=== PATIENT | male | born 1995 | race Caucasian/White ===

== ENCOUNTER 2018-01-23 21:35 | Emergency (ER) | payer OTHER ==
[~2018-01-23] VITALS: Ht 182.9 cm; Wt 90.0 kg
--- NOTE | 2018-01-23 22:21 | PD ---
HPI Chief Complaint: Psychiatric Symptoms Time Seen by Provider: 21:43 Travel History International Travel<30 days: No Contact w/Intl Traveler<30days: No Traveled to known affect area: No History of Present Illness HPI 22-year-old white male presents emergency department as a transfer from [facility] emergency department. The patient was medically cleared. He was Carreon acted by the ER physician. The patient was acting acutely bizarre and manic. Patient was positive for amphetamines, cocaine, and marijuana. Patient was given 5 mg of Haldol and 2 mg of Ativan. The patient here denies any suicidal homicidal ideation. He states he does not understand why he is here today. The patient denies any medical complaints. [facility] Past Medical History Narrative Medical IV drug abuse Tetanus Vaccination: Unknown Past Surgical History Surgical History: No Previous Surgery Social History Alcohol Use: Yes Tobacco Use: Yes Substance Use: Yes Review of Systems ROS Limitations: Poor Historian Physical Exam Narrative GENERAL: Well-nourished, well-developed patient. SKIN: Warm and dry. Patient has abrasion on the right forearm. Patient has areas of bruising to the upper extremities and track logan. HEAD: Normocephalic and atraumatic. EYES: No scleral icterus. No injection or drainage. ENT: No nasal drainage noted. Mucous membranes pink. Airway patent. NECK: Supple, trachea midline. Moves head freely without obvious discomfort. CARDIOVASCULAR: Regular rate and rhythm without murmurs, gallops, or rubs. RESPIRATORY: Breath sounds equal bilaterally. No accessory muscle use. GASTROINTESTINAL: Abdomen soft, non-tender, nondistended. EXTREMITIES: No cyanosis or edema. BACK: Nontender without obvious deformity. No CVA tenderness. NEURO: Patient is alert and oriented to person, time and year. He does not know the location or reason for visit today.. no sensorimotor deficits. Nonfocal. Normal speech. PSYCH: No delusions. No auditory or visual hallucinations. [facility] Medical Decision Making Medical Screen Exam Complete: Yes Emergency Medical Condition: Yes Medical Record Reviewed: Yes Interpretation(s) Laboratory tests reviewed from his medical evaluation and [facility] Differential Diagnosis MDM: High Differential diagnoses: Schizophrenia, schizoaffective disorder, bipolar, anxiety, depression, adjustment reaction, mood disorder NOS, ODD, depressive disorder NOS, dementia, dementia with agitation, psychosis NOS, substance induced mood disorder, DMDD, Asperger syndrome, infection,electrolyte abnormality, malingering. Narrative Course Mental health screening discussed with the patient. Psychiatric screen ordered. Patient has been medically cleared. This is medical clearance for psychiatric admission, substance induced psychosis , polysubstance abuse Diagnosis Primary Impression: Medical clearance for psychiatric admission Additional Impressions: Substance-induced psychosis Polysubstance abuse Condition: Stable Andrew Chapa Jan 23, 2018 22:21
[2018-01-24 02:21] VITALS: BP 126/60; PULSE 97; RESP 16; O2SAT 99
[2018-01-24 11:15] VITALS: BP 143/79; PULSE 62; RESP 20
[2018-01-24 19:10] VITALS: BP 128/61; PULSE 56; RESP 20; O2SAT 96
[2018-01-25 02:14] VITALS: BP 141/67; PULSE 65; RESP 17; O2SAT 99
[2018-01-25 06:46] VITALS: BP 112/62; PULSE 92; RESP 16; O2SAT 100
--- NOTE | 2018-01-25 09:03 | PD ---
Physical Exam Time Seen by Provider: 09:[address] Logan has evaluated patient, lifted the Carreon act and cleared patient for discharge. Data Data Last Documented VS Vital Signs Date Time Temp Pulse Resp B/P (MAP) Pulse Ox O2 Delivery O2 Flow Rate FiO2 01/25/18 06:46 92 16 112/62 (79) 100 Room Air Orders Orders Psych Screen (01/23/18 22:17) Diet Regular Basic (01/24/18 Breakfast) Diet Regular Basic (01/24/18 Lunch) Diet Regular Basic (01/24/18 Dinner) Diet Regular Basic (01/25/18 Breakfast) MDM Supervised Visit with LANDON: No Narrative Course Dr. Logan has evaluated patient, lifted the Carreon act and cleared patient for discharge. Patient contracts safety. Denies suicidal or homicidal ideations. Patient will be provided community resource packet to [facility] for follow-up. Has friends and family for support. Patient was medically cleared by alternate provider prior to psych screening. Patient has been evaluated by psychiatry and and is now cleared for discharge. Diagnosis Primary Impression: Polysubstance abuse Additional Impression: Substance-induced psychosis Referrals: [facility] (Out patient) [facility] Primary Care Physician Psychiatrist Domenica BUSBY Behavioral Patient Instructions: General Instructions, Mood Disorders (ED), Polysubstance Abuse (ED) Additional Instruction: Contract safety to your self and others Stop using drugs Follow-up with psychiatry Follow-up with primary care provider Follow-up with Ellis Dumont Return to the emergency department immediately with worsening of symptoms Med/Other Pt SpecificInfo: No Change to Meds, No Meds Exist/No RX given Scripts Unable to Obtain Active Prescriptions or Reported Meds Disposition: 01 DISCHARGE HOME Condition: Stable NikoharjitLatoya CLEMENTE Jan 25, 2018 09:03
--- NOTE | 2018-01-25 11:39 | PD.PSY.CON ---
Provisional Diagnosis Admission Date [place] I. Polysubstance dependence including amphetamines, Dilaudid, cocaine, cannabis, history of ADHD [place] II. Unspecified personality disorder [place] III. No significant medical he History of Present Illness Service Psychiatry Consult Requested By ER Reason for Consult Under Velma act Primary Care Physician No Primary Care Physician HPI The patient is 22-year-old young man, domiciled with his mother in [place], single, unemployed, with psychiatric history of ADHD, depression, anxiety, polysubstance dependence including opiates, cannabis, cocaine, amphetamines, 2 previous psychiatric hospitalizations, multiple suicidal attempts, extensive history of self cutting behavior, no significant medical history, who presents emergency department as a transfer from [facility] emergency department. The patient was medically cleared. He was Carreon acted by the ER physician. The patient was acting acutely bizarre and manic. Patient was positive for amphetamines, cocaine, and marijuana. Patient was given 5 mg of Haldol and 2 mg of Ativan. The patient here denies any suicidal homicidal ideation. He states he does not understand why he is here today. The patient denies any medical complaints. On psychiatric evaluation today patient presents clinically sober, calm, cooperative. Patient reports that he has been using several drugs day by day. Patient reports that he used drugs to have more fun. Patient says that he does not remember the circumstances that brought him to the hospital." I guess I was just crazy". He denies symptoms of depression, denies anxiety, denies suicidal and was ideation, he denies visual and auditory hallucination at this moment. Review of Systems Constitutional: DENIES: Diaphoretic episodes, Fatigue, Fever, Weight gain, Weight loss, Chills, Dizziness, Change in appetite, Night Sweats Endocrine: DENIES: Heat/cold intolerance, Polydipsia, Polyuria, Polyphagia Eyes: DENIES: Blurred vision, Diplopia, Eye inflammation, Eye pain, Vision loss , Photosensitivity, Double Vision Ears, nose, mouth, throat: DENIES: Tinnitus, Hearing loss, Vertigo, Nasal discharge, Oral lesions, Throat pain, Hoarseness, Ear Pain, Running Nose, Epistaxis, Sinus Pain, Toothache, Odynophagia Respiratory: DENIES: Apneas, Cough, Snoring, Wheezing, Hemoptysis, Sputum production, Shortness of breath Cardiovascular: DENIES: Chest pain, Palpitations, Syncope, Dyspnea on Exertion , PND, Lower Extremity Edema, Orthopnea, Claudication Gastrointestinal: DENIES: Abdominal pain, Black stools, Bloody stools, Constipation, Diarrhea, Nausea, Vomiting, Difficulty Swallowing, Anorexia Genitourinary: DENIES: Sexual dysfunction, Urinary frequency, Urinary incontinence, Urgency, Hematuria, Dysuria, Nocturia, Penile Discharge, Testicular Pain, Testicular Swelling Musculoskeletal: DENIES: Joint pain, Muscle aches, Stiffness, Joint Swelling, Back pain, Neck pain Integumentary: DENIES: Abnormal pigmentation, Nail changes, Pruritus, Rash Hematologic/lymphatic: DENIES: Bruising, Lymphadenopathy Immunologic/allergic: DENIES: Eczema, Urticaria Neurologic: DENIES: Abnormal gait, Headache, Localized weakness, Paresthesias, Seizures, Speech Problems, Tremor, Poor Balance Psychiatric: DENIES: Anxiety, Confusion, Mood changes, Depression, Hallucinations, Agitation, Suicidal Ideation, Homicidal Ideation, Delusions Past Family Social History Coded Allergies: Sulfa (Sulfonamide Antibiotics) (Verified Allergy, Unknown, 01/23/18) azithromycin (Verified Allergy, Unknown, 01/23/18) Unable to Obtain Active Prescriptions or Reported Meds Family Psych History No family psychiatric history Social History Patient was born and raised in [place], he lives in [place] with his mother, single, unemployed, highest level of education is GED Patient's Strengths (min. 2) Family support Physical Exam Vital Signs Vital Signs Date Time Temp Pulse Resp B/P (MAP) Pulse Ox O2 Delivery O2 Flow Rate FiO2 01/25/18 10:40 01/25/18 06:46 92 16 100 Room Air Mental Status Examination Appearance: Appropriate Consciousness: Alert Orientation: x4 Motor Activity: Normal gait Speech: Unremarkable Language: Adequate Fund of Knowledge: Adequate Attention and Concentration: Adequate Memory: Unremarkable Mood: Appropriate Affect: Appropriate Thought Process & Associations: Intact Thought Content: Appropriate Hallucination Type: None Delusion Type: None Suicidal Ideation: No Suicidal Plan: No Suicidal Intention: No Homicidal Ideation: No Homicidal Plan: No Homicidal Intention: No Insight: Adequate Judgment: Adequate Assessment & Plan Problem List: (1) Polysubstance (excluding opioids) dependence ICD Codes: F19.20 - Other psychoactive substance dependence, uncomplicated Assessment & Plan: On psychiatric evaluation today the patient does not present any significant evidence of depression, anxiety, kassandra or psychosis. The patient denies suicidal and homicidal ideation. His recent erratic/manic behavior was most probably the result of substance intoxication. Patient came to the hospital positive for amphetamines, cocaine, cannabis, opiates. At this moment he is clinically sober. Extensive psychoeducation about the importance of avoiding drugs and engaging in drug treatment was provided. Referral for detox was provided. At this moment the patient does not meet criteria for involuntary psychiatric admission, Carreon act will be lifted. Assessment & Plan Estimated LOS: Jonatan Subramanian MD Jan 25, 2018 11:39
== END 2018-01-25 10:40 | disposition home or self-care (01) ==
LOC: NEPJ 21:35
DX: F19.259 Other psychoactive substance dependence with psychoactive substance-induced psychotic disorder, unspecified (principal)
CPT/HCPCS: 99284